=== PATIENT | female | born 1970 | race Caucasian/White ===

== ENCOUNTER 2017-02-17 11:21 | Emergency (ER) | payer SELFPAY ==
[2017-02-17] MEDS ORDERED: Clindamycin 150 MG CAP ONE (11:56)
[2017-02-17] MEDS ORDERED: Naproxen 500 MG TAB ONE (11:56)
== END 2017-02-17 12:02 | disposition home or self-care (01) ==
LOC: MADERS 11:21
DX: L04.0 Acute lymphadenitis of face, head and neck (principal); E11.9 Type 2 diabetes mellitus without complications; Z87.442 Personal history of urinary calculi
CPT/HCPCS: 99282

== ENCOUNTER 2017-03-06 22:33 | Emergency (ER) | payer SELFPAY ==
[~2017-03-06 22:33] MED LIST: Iopamidol 370 76% 100 ML VIAL ONE; Sodium Chloride 0.9% 1,000 ML BAG ONE
[2017-03-06 23:41] LABS: #Basophils 0.1 thou/uL (0.0-0.2); #Eosinphils 0.1 thou/uL (0.0-0.7); #Lymphocytes 2.5 thou/uL (1.20-3.40); #Monocytes 0.4 thou/uL (0.11-0.59); #Neutrophils 2.4 thou/uL (1.40-6.50); %Basophils 0.9 % (0.0-1.0); %Lymphocytes 45.6 % (21.0-51.0); %Monocytes 7.3 % (0.0-10.0); %Neutrophils 44.1 % (42.0-75.0); Hemoglobin 14.1 g/dL (12.0-16.0); Mean Corpuscular HGB CONC 33.5 g/dL (32.0-36.0); Mean Corpuscular Hemoglobin 28.8 pg (27.0-31.0); Mean Corpuscular Volume 85.8 fl (81.0-99.0); Mean Platelet Volume 7.2 fL (7.4-10.4); Platelet Count 267 thou/uL (130-400); RBC Distribution Width 12.6 % (11.5-14.5); White Blood Cell (WBC) Count 5.4 thou/uL (4.8-10.8)
[2017-03-06] MEDS ORDERED: Clindamycin/D5W 900 mg/50 ml Premix Bag ONE (23:48)
[2017-03-06 23:54] LABS: Anion Gap 16 mmol/L (10-20); BUN (Urea Nitrogen) 16 mg/dL (7.0-18.7); Calc. Creatinine Clearance 0 mL/min (70-130); Carbon Dioxide 22 mmol/L (22-29); Chloride 106 mmol/L (98-107); Estimated GFR-MDRD 76; Glucose 229 mg/dL (70-105); Potassium 3.7 mmol/L (3.5-5.1); Sodium 140 mmol/L (136-145)
--- NOTE | 2017-03-06 23:57 | CT ---
NECK CT WITH IV CONTRAST 03/06/17 COMPARISON: None. HISTORY: Pain. TECHNIQUE: Serial axial CT imaging is obtained at 2.5 mm intervals from skull base through lung apices with IV contrast. Coronal and sagittal reformatted imaging obtained. FINDINGS: The imaged lung apices are unremarkable. The imaged paranasal sinuses/mastoid air cells are grossly unremarkable. The retroantral fat and the parapharyngeal fat appears clear bilaterally. Bilateral parotid glands a nd submandibular glands appear within normal limits. The tonsillar pillars, hyoid bone, epiglottis, pre-epiglottic fat, thyroid gland, thyroid cartilage, cricoid cartilage, and level of the glottis appear unremarkable. There is atherosclerotic calcification at the origin of the internal carotid artery bilaterally. There is no lymphadenopathy seen. Osseous structures demonstrate no acute findings. There is a stable nonspecific lucent lesion within the C3 vertebral body, unchanged when compared to a cervical spine CT performed 08/16/14 suggesting a benign etiology. No acute osseous abnormality is evident. IMPRESSION: No acute findings. POS: [facility]
[2017-03-07] MEDS ORDERED: Ketorolac Tromethamine 30 MG/ML VIAL ONE (00:21)
== END 2017-03-07 00:55 | disposition home or self-care (01) ==
LOC: MADERS 22:33
DX: K02.9 Dental caries, unspecified (principal); M54.2 Cervicalgia; E11.9 Type 2 diabetes mellitus without complications; Z87.442 Personal history of urinary calculi; Z79.4 Long term (current) use of insulin
CPT/HCPCS: 70491; 80048; 85025; 96365; 96366; 96375; J1885; J3490; J7050

== ENCOUNTER 2017-05-20 01:43 | Emergency (ER) | payer SELFPAY ==
[2017-05-20] MEDS ORDERED: Naproxen 500 MG TAB ONE (02:52)
[2017-05-20] MEDS ORDERED: Ondansetron ODT 4 MG TAB ONE (02:52)
[2017-05-20] MEDS ORDERED: predniSONE 20 MG TAB ONE (02:52)
[2017-05-20] MEDS ORDERED: diphenhydrAMINE HCl 25 MG CAP ONE (02:52)
== END 2017-05-20 03:19 | disposition home or self-care (01) ==
LOC: MADERS 01:43
DX: T63.2X1A Toxic effect of venom of scorpion, accidental (unintentional), initial encounter (principal); E11.9 Type 2 diabetes mellitus without complications; Z87.442 Personal history of urinary calculi; Z79.4 Long term (current) use of insulin
CPT/HCPCS: 99283; J7506; Q0162

== ENCOUNTER 2017-09-21 21:39 | Emergency (ER) | payer SELFPAY ==
[2017-09-21 22:26] LABS: Bilirubin Negative (Negative); Blood, Urine Trace (Negative); Clarity Clear (Clear); Glucose, Urine (Dipstick) >=1000 mg/dL (Negative); Leukocyte Negative (Negative); Nitrite Negative (Negative); Protein, Urine (Dipstick) Negative (Neg-Trace); Specific Gravity, Urine 1.025 (1.005-1.030); Urobilinogen 0.2 mg/dL (0.2-1.0); pH, Urine 5.5 (5.0-9.0)
[2017-09-21] MEDS ORDERED: Ibuprofen 600 MG TAB ONE (22:30)
[2017-09-21 22:33] LABS: Bacteria/HPF 1+ HPF (None Seen)
[2017-09-21] MEDS ORDERED: Ciprofloxacin 500 MG TAB ONE (22:45)
== END 2017-09-21 23:00 | disposition home or self-care (01) ==
LOC: MADERS 21:39
DX: S20.461A Insect bite (nonvenomous) of right back wall of thorax, initial encounter (principal); N39.0 Urinary tract infection, site not specified; J02.9 Acute pharyngitis, unspecified; E11.9 Type 2 diabetes mellitus without complications; Z87.442 Personal history of urinary calculi; Z79.4 Long term (current) use of insulin
CPT/HCPCS: 81003; 81015; 87081; 87086; 87430; 99283

== ENCOUNTER 2017-09-24 12:43 | Emergency (ER) | payer SELFPAY ==
[2017-09-24] MEDS ORDERED: traMADol HCl 50 MG TAB ONE (13:10)
[2017-09-24] MEDS ORDERED: Fentanyl 100 MCG/2 ML VIAL ONE (13:10)
[2017-09-24] MEDS ORDERED: Ketorolac Tromethamine 60 MG/2 ML VIAL ONE (13:10)
--- NOTE | 2017-09-24 13:41 | RAD ---
PELVIS ONE VIEW: HISTORY: Injury. COMPARISON: Radiograph from the same day. FINDINGS: There appears to be a bone island at the intertrochanteric portion of the left femur. No acute fracture of the pelvis. The obturator rings are intact. The pubic symphysis is intact. IMPRESSION: No acute fracture of the pelvis. POS: [facility]
--- NOTE | 2017-09-24 13:43 | RAD ---
LUMBAR SPINE THREE VIEWS: HISTORY: Pain. COMPARISON: CT from 2016. FINDINGS: Bilateral L5 and pars interarticularis defects are present with grade 1 anterolisthesis at L5/S1. Mi ld degenerative disk space height loss at L4-L5. Numerous small anterior osteophytes. No acute fracture. IMPRESSION: Bilateral L5 pars interarticularis defects with grade 1 anterolisthesis. POS: [facility]
--- NOTE | 2017-09-24 13:47 | RAD ---
THREE VIEWS OF THE SACRUM AND COCCYX: 09/24/2017 HISTORY: Fall. Pain. COMPARISON: None. FINDINGS: The pelvic ring appears intact with no widening of the sacroiliac joints or pubic symphysis. Seconda ry to body habitus, detailed assessment of the sacrum and coccyx is limited on the lateral view. No obvious fracture is seen. There is evidence of anterolisthesis of L5 on S1, measuring in the 1.5 cm range, better assessed on the lumbar spine radiographs, also performed on 09/24/2017. IMPRESSION: 1. No acute osseous abnormality seen. 2. Anterolisthesis of L5 on S1 suggests bilateral L5 pars defects. POS: [facility]
--- NOTE | 2017-09-24 13:47 | RAD ---
LEFT ELBOW FOUR VIEWS: Indication: Left elbow pain subsequent to fall. Injury. FINDINGS: Obliquity of the lateral view does limit the assessment. There is no obvious fracture or dislocation seen. No radiopaque foreign body identified. IMPRESSION: No acute fracture of the left elbow identified. Limited evaluation by obliquity of the lateral view. POS: [facility]
== END 2017-09-24 15:55 | disposition home or self-care (01) ==
LOC: MADERS 12:43
DX: M43.16 Spondylolisthesis, lumbar region (principal); E11.9 Type 2 diabetes mellitus without complications; Z87.442 Personal history of urinary calculi; Z79.4 Long term (current) use of insulin; W10.8XXA Fall (on) (from) other stairs and steps, initial encounter; Y93.01 Activity, walking, marching and hiking
CPT/HCPCS: 72100; 72170; 72220; 96372; 96374; J1885; J3010

== ENCOUNTER 2017-12-09 07:55 | Emergency (ER) | payer SELFPAY ==
[2017-12-09 08:56] LABS: #Eosinphils 0.1 thou/uL (0.0-0.7); #Lymphocytes 1.6 thou/uL (1.20-3.40); #Monocytes 0.5 thou/uL (0.11-0.59); #Neutrophils 2.1 thou/uL (1.40-6.50); %Basophils 0.7 % (0.0-1.0); %Eosinophils 2.2 % (0.0-10.0); %Lymphocytes 36.3 % (21.0-51.0); %Monocytes 12.4 % (0.0-10.0); %Neutrophils 48.3 % (42.0-75.0); Hemoglobin 13.5 g/dL (12.0-16.0); Mean Corpuscular Hemoglobin 28.8 pg (27.0-31.0); Mean Corpuscular Volume 87.4 fl (81.0-99.0); Mean Platelet Volume 6.8 fL (7.4-10.4); Platelet Count 257 thou/uL (130-400); RBC Distribution Width 12.3 % (11.5-14.5); Red Blood Cell (RBC) Count 4.68 mill/uL (4.20-5.40); White Blood Cell (WBC) Count 4.4 thou/uL (4.8-10.8)
[2017-12-09] MEDS ORDERED: Ondansetron ODT 4 MG TAB ONE (09:02)
[2017-12-09 09:15] LABS: ALT (SGPT) 24 U/L (8-55); AST (SGOT) 15 U/L (5-34); Alkaline Phosphatase 45 U/L (40-150); Anion Gap 15 mmol/L (10-20); BUN (Urea Nitrogen) 12 mg/dL (7.0-18.7); Bilirubin, Total 0.5 mg/dL (0.2-1.2); Calc. Creatinine Clearance 0 mL/min (70-130); Carbon Dioxide 23 mmol/L (22-29); Chloride 106 mmol/L (98-107); Estimated GFR-MDRD Greater than 90; Globulin 2.7 g/dL (2.4-3.5); Glucose 220 mg/dL (70-105); Lipase 34 U/L (8-78); Potassium 4.6 mmol/L (3.5-5.1); Protein, Total 6.7 g/dL (6.0-8.3); Sodium 139 mmol/L (136-145)
== END 2017-12-09 10:50 | disposition home or self-care (01) ==
LOC: MADERS 07:55
DX: A09 Infectious gastroenteritis and colitis, unspecified (principal); E11.9 Type 2 diabetes mellitus without complications; Z87.442 Personal history of urinary calculi; Z79.4 Long term (current) use of insulin; Z79.899 Other long term (current) drug therapy
CPT/HCPCS: 80053; 83630; 83690; 85025; 87045; 87046; 87449; 87899; 99284; Q0162

== ENCOUNTER 2018-05-16 07:42 | Emergency (ER) | payer SELFPAY ==
[~2018-05-16 07:42] MED LIST changes: -Iopamidol 370 76% 100 ML VIAL ONE
[2018-05-16] MEDS ORDERED: Metoclopramide HCl 10 MG/2 ML VIAL ONE (08:19)
[2018-05-16] MEDS ORDERED: Famotidine In NaCl 20 mg/50 ml Premix Bag ONE (08:19)
[2018-05-16] MEDS ORDERED: Ketorolac Tromethamine 30 MG/ML VIAL ONE (08:19)
[2018-05-16] MEDS ORDERED: Ondansetron HCl/PF 4 MG/2 ML Vial ONE (08:19)
[2018-05-16 08:44] LABS: #Basophils 0.1 thou/uL (0.0-0.2); #Eosinphils 0.1 thou/uL (0.0-0.7); #Lymphocytes 1.9 thou/uL (1.20-3.40); #Monocytes 0.5 thou/uL (0.11-0.59); #Neutrophils 2.2 thou/uL (1.40-6.50); %Basophils 1.1 % (0.0-1.0); %Eosinophils 2.1 % (0.0-10.0); %Lymphocytes 40.4 % (21.0-51.0); %Monocytes 9.6 % (0.0-10.0); %Neutrophils 46.9 % (42.0-75.0); Hemoglobin 14.3 g/dL (12.0-16.0); Mean Corpuscular HGB CONC 34.1 g/dL (32.0-36.0); Mean Corpuscular Hemoglobin 28.6 pg (27.0-31.0); Mean Platelet Volume 6.5 fL (7.4-10.4); Platelet Count 288 thou/uL (130-400); RBC Distribution Width 12.2 % (11.5-14.5); Red Blood Cell (RBC) Count 4.98 mill/uL (4.20-5.40); White Blood Cell (WBC) Count 4.7 thou/uL (4.8-10.8)
[2018-05-16 08:58] LABS: Anion Gap 16 mmol/L (10-20); BUN (Urea Nitrogen) 9 mg/dL (7.0-18.7); Calc. Creatinine Clearance 0 mL/min (70-130); Calcium 9.2 mg/dL (7.8-10.44); Carbon Dioxide 21 mmol/L (22-29); Chloride 108 mmol/L (98-107); Estimated GFR-MDRD 79; Glucose 154 mg/dL (70-105); Potassium 3.9 mmol/L (3.5-5.1); Sodium 141 mmol/L (136-145)
[2018-05-16 09:05] LABS: CKMB 0.8 ng/mL (0-6.6); Troponin I Less than 0.010 ng/mL (< 0.028)
[2018-05-16 09:54] LABS: Bilirubin Negative (Negative); Blood, Urine Negative (Negative); Clarity Clear (Clear); Glucose, Urine (Dipstick) Negative (Negative); Leukocyte Negative (Negative); Nitrite Negative (Negative); Protein, Urine (Dipstick) Negative (Neg-Trace); Specific Gravity, Urine 1.006 (1.002-1.036); Urobilinogen 0.2 mg/dL (0.2-1.0); pH, Urine 5.5 (5.0-9.0)
--- NOTE | 2018-05-16 11:39 | CT ---
CT ABDOMEN AND PELVIS WITH IV CONTRAST: Date: 05/16/18 HISTORY: Epigastric abdominal pain for 1 week with nausea, vomiting, and diarrhea. COMPARISON: 12/23/15. FINDINGS: The lung bases are clear. Calcified granulomata are again seen in the liver. There is an enhancing 1.7 cm lesion within the inf erior aspect of the right hepatic lobe. Prior imaging demonstrated fatty infiltration and this area a ppeared to represent mild increased density on the prior study. However, on a study on 10/18/13, ther e is a small, approximately 2.0 cm, hypodense mass seen in this location, which likely corresponds to the abnormality seen on today's examination. However, the prior exams were obtained without IV contr ast. There is a postcontrast CT exam in 2006 which demonstrates a small area of enhancement in this r egion, but this area has increased in size from that exam. However, today's finding is felt to repres ent the findings on the prior precontrast studies and likely represents a benign lesion, but either 1 year follow-up versus a MRI of the abdomen is recommended for further confirmation. The spleen, pancreas, bilateral adrenal glands, kidneys, and decompressed urinary bladder, as well as opacified bowel, demonstrate a normal CT appearance. The appendix is visualized and normal in caliber. Vascular calcifications are seen in the iliac arteries bilaterally, as well as at the origin of the m esenteric vessels. No free fluid, fluid collection, or lymphadenopathy is seen in the abdomen or pelvis. Bilateral pars defects are again seen at L5 with what appears to be Grade I anterolisthesis present a t this level on the chief school finance officer image, although is difficult to definitely characterize. IMPRESSION: 1. Enhancing lesion in the right hepatic lobe, slightly larger in size compared to the study in 2006 , but appears to be stable to an area of decreased attenuation thought to correspond to the enhancing abnormality on the study in 2013. This suggests a benign lesion such as either hemangioma or focal nodular hyperplasia. However, short interval follow-up is recommended as a conservative measure in 1 year versus further characterization and assessment with MRI of the abdomen. 2. Stable coarse calcification left upper quadrant below the left renal vessels and adjacent to the left ureter, which may represent a calcified lymph node. This is unchanged compared to prior studies dating back to 2013. 3. Hysterectomy. 4. No acute findings are seen in the abdomen or pelvis. POS: [facility]
== END 2018-05-16 12:04 | disposition home or self-care (01) ==
LOC: MADERS 07:42
DX: K21.0 Gastro-esophageal reflux disease with esophagitis (principal); E11.9 Type 2 diabetes mellitus without complications; Z87.442 Personal history of urinary calculi; Z79.4 Long term (current) use of insulin; Z79.899 Other long term (current) drug therapy
CPT/HCPCS: 74177; 80048; 81003; 82150; 82553; 84484; 85025; 87045; 87046; 87081; 87324; 87449; 87899; 93005; 96361; 96374; 96375; J1885; J2405; J2765

== ENCOUNTER 2018-07-30 10:12 | Emergency (ER) | payer SELFPAY | END 2018-07-30 10:55 | disposition home or self-care (01) | LOC: MADERS 10:12 | DX: Z00.00 Encounter for general adult medical examination without abnormal findings (principal) | CPT/HCPCS: 99281 ==

== ENCOUNTER 2019-02-14 22:32 | Emergency (ER) | payer SELFPAY ==
--- NOTE | 2019-02-14 23:06 | CT ---
EXAM: CT brain without contrast HISTORY: Headache COMPARISON: 08/16/2014 TECHNIQUE: Multiple contiguous axial images were obtained and a CT of the brain without contrast. FINDINGS: The brain is normal in morphology and attenuation without focal lesions or confluent areas of infarction. There is no evidence of hydrocephalus, intracranial hemorrhage, or extra-axial fluid collection. The calvarium and overlying soft tissues are unremarkable. The visualized paranasal sinuses and masto id air cells are well aerated. IMPRESSION: No evidence of acute intracranial abnormality
[2019-02-14] MEDS ORDERED: Lactated Ringer's 1,000 ML ONE (23:20)
[2019-02-14] MEDS ORDERED: Ketorolac Tromethamine 30 MG/ML VIAL ONE (23:20)
[2019-02-14] MEDS ORDERED: Metoclopramide HCl 10 MG/2 ML VIAL ONE (23:20)
== END 2019-02-15 00:35 | disposition home or self-care (01) ==
LOC: MADERS 22:32
DX: R51 Headache (principal); E11.9 Type 2 diabetes mellitus without complications; Z79.4 Long term (current) use of insulin
CPT/HCPCS: 36416; 70450; 96361; 96374; 96375; J1885; J2765; J7120

== ENCOUNTER 2019-07-01 00:37 | Emergency (ER) | payer SELFPAY ==
[2019-07-01] MEDS ORDERED: Sodium Chloride 0.9% 1,000 ML ONE (01:12)
[2019-07-01] MEDS ORDERED: Aspirin Chewable 81 MG TAB ONE (01:12)
[2019-07-01] MEDS ORDERED: Ondansetron PF 4 MG/2 ML Vial ONE (01:12)
[2019-07-01] MEDS ORDERED: Nitroglycerin 0.4 MG TAB 1 EACH ONE ×2 (01:12→06:55)
[2019-07-01 01:38] LABS: #Basophils 0.1 thou/uL (0.0-0.2); #Eosinphils 0.1 thou/uL (0.0-0.7); #Lymphocytes 2.5 thou/uL (1.20-3.40); #Monocytes 0.5 thou/uL (0.11-0.59); #Neutrophils 3.3 thou/uL (1.40-6.50); %Basophils 1.2 % (0.0-1.0); %Eosinophils 2.1 % (0.0-10.0); %Lymphocytes 38.9 % (21.0-51.0); %Monocytes 7.7 % (0.0-10.0); %Neutrophils 50.1 % (42.0-75.0); Hemoglobin 13.1 g/dL (12.0-16.0); Mean Corpuscular HGB CONC 32.8 g/dL (32.0-36.0); Mean Corpuscular Hemoglobin 27.7 pg (27.0-31.0); Mean Corpuscular Volume 84.2 fL (78.0-98.0); Mean Platelet Volume 6.2 fL (7.4-10.4); Platelet Count 245 thou/uL (130-400); Red Blood Cell (RBC) Count 4.75 mill/uL (4.20-5.40); White Blood Cell (WBC) Count 6.5 thou/uL (4.8-10.8)
[2019-07-01 01:51] LABS: ALT (SGPT) 24 U/L (8-55); AST (SGOT) 15 U/L (5-34); Alkaline Phosphatase 59 U/L (40-110); Anion Gap 15 mmol/L (10-20); BUN (Urea Nitrogen) 19 mg/dL (7.0-18.7); Bilirubin, Total 0.2 mg/dL (0.2-1.2); Calc. Creatinine Clearance 0 mL/min (70-130); Calcium 9.3 mg/dL (7.8-10.44); Carbon Dioxide 23 mmol/L (22-29); Chloride 103 mmol/L (98-107); Estimated GFR-MDRD 71; Globulin 3.2 g/dL (2.4-3.5); Glucose 298 mg/dL (70-105); Potassium 4.1 mmol/L (3.5-5.1); Protein, Total 7.2 g/dL (6.0-8.3); Sodium 137 mmol/L (136-145)
[2019-07-01] MEDS ORDERED: Acetaminophen 500 MG TAB ONE (01:53)
--- NOTE | 2019-07-01 07:06 | RAD ---
RADIOGRAPH CHEST 1 VIEW: DATE: 07/01/2019 1:21 AM HISTORY: 48-year-old female with left-sided chest pain FINDINGS: There are no airspace densities, pulmonary edema, pneumothorax, or cardiomegaly. The lateral costophr enic angles are sharp. IMPRESSION: No acute cardiopulmonary findings.
== END 2019-07-01 02:14 | disposition short-term general hospital (02) ==
LOC: MADERS 00:37
DX: R07.9 Chest pain, unspecified (principal); E11.9 Type 2 diabetes mellitus without complications; Z79.84 Long term (current) use of oral hypoglycemic drugs; Z79.82 Long term (current) use of aspirin; Z86.73 Personal history of transient ischemic attack (TIA), and cerebral infarction without residual deficits
CPT/HCPCS: 71045; 80053; 83880; 84484; 85025; 85379; 93005; 94760; 96361; 96374; J2405; J7050

== ENCOUNTER 2019-10-01 04:00 | Emergency (ER) | payer SELFPAY ==
[2019-10-01] MEDS ORDERED: Ketorolac Tromethamine 30 MG/ML VIAL ONE (04:49)
== END 2019-10-01 05:14 | disposition home or self-care (01) ==
LOC: MADERS 04:00
DX: M25.511 Pain in right shoulder (principal); E11.9 Type 2 diabetes mellitus without complications
CPT/HCPCS: 93005; 96372; J1885

== ENCOUNTER 2020-07-12 10:12 | Emergency (ER) | payer SELFPAY ==
--- NOTE | 2020-07-12 11:57 | RAD ---
Exam: Chest one view HISTORY:Chest pain Comparison: 07/01/2019 FINDINGS: Cardiac silhouette: Normal Aorta: Unremarkable Pulmonary vessels: Normal Costophrenic angles: Clear LUNGS: No masses or consolidation. Pneumothorax: None Osseous abnormalities: None IMPRESSION: No acute cardiopulmonary process.
== END 2020-07-12 13:05 | disposition home or self-care (01) ==
LOC: MADERS 10:12
DX: R06.02 Shortness of breath (principal); R51.9 Headache, unspecified; R05 Cough; E11.9 Type 2 diabetes mellitus without complications; Z79.4 Long term (current) use of insulin; Z87.442 Personal history of urinary calculi; Z86.73 Personal history of transient ischemic attack (TIA), and cerebral infarction without residual deficits
CPT/HCPCS: 71045; 93005

== ENCOUNTER 2020-10-21 02:26 | Emergency (ER) | payer SELFPAY ==
[2020-10-21] MEDS ORDERED: Boostrix 0.5 ML (Tdap) VIAL ONE (03:07)
[2020-10-21] MEDS ORDERED: Acetaminophen 500 MG TAB ONE (03:07)
[2020-10-21] MEDS ORDERED: Ondansetron PF 4 MG/2 ML Vial ONE (03:07)
[2020-10-21] MEDS ORDERED: Acetaminophen 325 MG TAB ONE (03:25)
--- NOTE | 2020-10-21 07:27 | CT ---
PRELIMINARY REPORT/[facility]/EMERGENCY AFTER HOURS PROCEDURE EXAM: CT Head Without Intravenous Contrast. CLINICAL HISTORY: FALL; HIT HEAD ON NIGHTSTAND; HEMATOMA TO LEFT FRONTAL TECHNIQUE: Axial computed tomography images of the head/brain without intravenous contrast. COMPARISON: None provided. FINDINGS: BRAIN: No acute intraparenchymal hemorrhage. No mass lesion. No CT evidence for acute territorial infarct. N o midline shift or extra-axial collection. VENTRICLES: No hydrocephalus. ORBITS: The orbits are unremarkable. SINUSES AND MASTOIDS: The paranasal sinuses and mastoid air cells are clear. SOFT TISSUES: Large left frontal scalp hematoma. No radiopaque foreign body is seen. BONES: No acute skull fracture. IMPRESSION: No acute intracranial abnormality. Large left frontal scalp hematoma. ELECTRONICALLY SIGNED BY: Gayatri Mark MD Oct 21, 2020 3:15:17 AM [employer] This report is intended for review by the ordering physician only, in accordance of law. If you recei ve this report in error, please call [facility] at [phone]. FINAL REPORT Final interpretation Head CT without contrast: 10/21/2020 COMPARISON: 02/14/2019. HISTORY: Injury, trauma, pain. FINDINGS: There is a focal area of scalp swelling/subcutaneous hematoma in the left frontal region/left suprao rbital region. The visualized paranasal sinuses and mastoid air cells appear well-aerated. There is no displaced calvarial fracture noted. No intracranial hemorrhage, midline shift, mass effect, or ventricular enlargement is seen. Multifoca l dural calcification present. IMPRESSION: Prominent scalp swelling/subcutaneous hematoma in the left frontal region. No associated fracture or intracranial hemorrhage. CODE QA. Transcribed Date/Time: 10/21/2020 8:04 AM
== END 2020-10-21 03:39 | disposition home or self-care (01) ==
LOC: MADERS 02:26
DX: S00.83XA Contusion of other part of head, initial encounter (principal); S50.312A Abrasion of left elbow, initial encounter; S80.812A Abrasion, left lower leg, initial encounter; E11.9 Type 2 diabetes mellitus without complications; Z86.73 Personal history of transient ischemic attack (TIA), and cerebral infarction without residual deficits; Z79.4 Long term (current) use of insulin; W01.10XA Fall on same level from slipping, tripping and stumbling with subsequent striking against unspecified object, initial encounter
CPT/HCPCS: 70450; 90471; 90715; 96374; J2405

== ENCOUNTER 2021-04-18 17:53 | Emergency (ER) | payer SELFPAY ==
[~2021-04-18 17:53] MED LIST changes: +Iopamidol 370 76% 125 ML VIAL FS ONE; -Sodium Chloride 0.9% 1,000 ML BAG ONE; +Sodium Chloride 0.9% 100 ML BAG ONE
[2021-04-18 19:05] LABS: Bilirubin Negative (Negative); Blood, Urine Trace (Negative); Clarity Clear (Clear); Glucose, Urine (Dipstick) 100 mg/dL (Negative); Ketone, Urine Negative (Negative); Leukocyte Trace (Negative); Nitrite Negative (Negative); Protein, Urine (Dipstick) Negative (Neg-Trace); Specific Gravity, Urine 1.015 (1.005-1.030); Urobilinogen 0.2 mg/dL (Less than 2); pH, Urine 6.5 (5.0-9.0)
[2021-04-18 19:10] LABS: Bacteria/HPF 1+ HPF (None Seen); RBC/HPF 0-3 HPF (0-3); WBC/HPF 0-3 HPF (0-3)
[2021-04-18 19:13] LABS: #Eosinphils 0.1 thou/uL (0.0-0.7); #Lymphocytes 2.1 thou/uL (1.20-3.40); #Monocytes 0.6 thou/uL (0.11-0.59); #Neutrophils 2.7 thou/uL (1.40-6.50); %Basophils 0.9 % (0.0-1.0); %Eosinophils 1.1 % (0.0-10.0); %Lymphocytes 37.9 % (21.0-51.0); %Monocytes 10.9 % (0.0-10.0); %Neutrophils 49.2 % (42.0-75.0); Hemoglobin 14.5 g/dL (12.0-16.0); Mean Corpuscular HGB CONC 31.8 g/dL (32.0-36.0); Mean Corpuscular Hemoglobin 27.2 pg (27.0-31.0); Mean Corpuscular Volume 85.5 fL (78.0-98.0); Mean Platelet Volume 7.2 fL (7.4-10.4); Platelet Count 256 thou/uL (130-400); Red Blood Cell (RBC) Count 5.34 mill/uL (4.20-5.40); White Blood Cell (WBC) Count 5.5 thou/uL (4.8-10.8)
[2021-04-18 19:32] LABS: ALT (SGPT) 40 U/L (8-55); AST (SGOT) 26 U/L (5-34); Albumin 3.8 g/dL (3.5-5.0); Alkaline Phosphatase 57 U/L (40-110); Anion Gap 15 mmol/L (10-20); BUN (Urea Nitrogen) 13 mg/dL (9.8-20.1); Bilirubin, Total 0.5 mg/dL (0.2-1.2); Calc. Creatinine Clearance 0 mL/min (70-130); Carbon Dioxide 24 mmol/L (22-29); Chloride 103 mmol/L (98-107); Globulin 2.9 g/dL (2.4-3.5); Glucose 181 mg/dL (70-105); Magnesium 1.7 mg/dL (1.6-2.6); Potassium 3.9 mmol/L (3.5-5.1); Protein, Total 6.7 g/dL (6.0-8.3); Sodium 138 mmol/L (136-145)
[2021-04-18] MEDS ORDERED: Meclizine HCl 25 MG TAB ONE (19:39)
[2021-04-18] MEDS ORDERED: Aspirin Chewable 81 MG TAB ONE (21:16)
== END 2021-04-18 22:33 | disposition short-term general hospital (02) ==
LOC: MADERS 17:53
DX: R42 Dizziness and giddiness (principal); E11.9 Type 2 diabetes mellitus without complications; Z79.4 Long term (current) use of insulin; Z86.73 Personal history of transient ischemic attack (TIA), and cerebral infarction without residual deficits; Z87.442 Personal history of urinary calculi
CPT/HCPCS: 36415; 70450; 70496; 70498; 80053; 81003; 81015; 83735; 84443; 85025; 93005; J3490; Q9967

== ENCOUNTER 2021-05-17 20:48 | Emergency (ER) | payer OTHER, SELFPAY ==
[2021-05-17] MEDS ORDERED: Acetaminophen 500 MG TAB ONE (22:24)
== END 2021-05-18 00:08 | disposition home or self-care (01) ==
LOC: MADERS 20:48
DX: S00.03XA Contusion of scalp, initial encounter (principal); S30.0XXA Contusion of lower back and pelvis, initial encounter; E11.9 Type 2 diabetes mellitus without complications; I10 Essential (primary) hypertension; Z87.442 Personal history of urinary calculi; Z86.73 Personal history of transient ischemic attack (TIA), and cerebral infarction without residual deficits; W01.0XXA Fall on same level from slipping, tripping and stumbling without subsequent striking against object, initial encounter
CPT/HCPCS: 70450; 72131

== ENCOUNTER 2022-03-08 08:54 | Emergency (ER) | payer SELFPAY | END 2022-03-08 09:48 | disposition home or self-care (01) | LOC: MADERS 08:54 | DX: U07.1 COVID-19 (principal); J06.9 Acute upper respiratory infection, unspecified; E11.9 Type 2 diabetes mellitus without complications; Z79.84 Long term (current) use of oral hypoglycemic drugs; Z79.899 Other long term (current) drug therapy | CPT/HCPCS: 99283; U0003; U0005 ==

== ENCOUNTER 2022-08-30 20:55 | Emergency (ER) | payer SELFPAY ==
[2022-08-30] MEDS ORDERED: Ketorolac Tromethamine 30 MG/ML VIAL ONE (21:41)
[2022-08-30] MEDS ORDERED: Sodium Chloride 0.9% 1,000 ML ONE (21:41)
[2022-08-30] MEDS ORDERED: Metoclopramide HCl 10 MG/2 ML VIAL ONE (21:41)
[2022-08-30] MEDS ORDERED: diphenhydrAMINE 50 MG/ML VIAL ONE (21:41)
== END 2022-08-30 23:26 | disposition home or self-care (01) ==
LOC: MADERS 20:55
DX: R51.9 Headache, unspecified (principal); E11.9 Type 2 diabetes mellitus without complications; Z79.4 Long term (current) use of insulin
CPT/HCPCS: 36416; 96365; 96375; J1200; J1885; J2765; J7050

== ENCOUNTER 2022-09-06 00:49 | Emergency (ER) | payer SELFPAY ==
[2022-09-06 01:20] LABS: #Eosinphils 0.1 thou/uL (0.0-0.7); #Lymphocytes 2.2 thou/uL (1.20-3.40); #Monocytes 0.6 thou/uL (0.11-0.59); #Neutrophils 2.5 thou/uL (1.40-6.50); %Basophils 0.8 % (0.0-1.0); %Eosinophils 1.4 % (0.0-10.0); %Lymphocytes 41.2 % (21.0-51.0); %Monocytes 10.1 % (0.0-10.0); %Neutrophils 46.6 % (42.0-75.0); Hemoglobin 14.6 g/dL (12.0-16.0); Mean Corpuscular HGB CONC 33.2 g/dL (32.0-36.0); Mean Corpuscular Hemoglobin 28.6 pg (27.0-31.0); Mean Corpuscular Volume 86.2 fl (78.0-98.0); Mean Platelet Volume 7.2 fL (7.4-10.4); Platelet Count 255 10x3/uL (130-400); RBC Distribution Width 11.6 % (11.5-14.5); Red Blood Cell (RBC) Count 5.11 mill/uL (4.20-5.40); White Blood Cell (WBC) Count 5.4 10x3/uL (4.8-10.8)
[2022-09-06 01:40] LABS: ALT (SGPT) 19 U/L (8-55); AST (SGOT) 16 U/L (5-34); Albumin 4.1 g/dL (3.5-5.0); Alkaline Phosphatase 67 U/L (40-110); Anion Gap 15 mmol/L (10-20); BUN (Urea Nitrogen) 22 mg/dL (9.8-20.1); Bilirubin, Total 0.4 mg/dL (0.2-1.2); CK (CPK) 112 U/L (29-168); Calc. Creatinine Clearance 0 mL/min (70-130); Calcium 9.3 mg/dL (7.8-10.44); Carbon Dioxide 25 mmol/L (22-29); Chloride 102 mmol/L (98-107); Estimated GFR 85; Globulin 3.3 g/dL (2.4-3.5); Glucose 253 mg/dL (70-105); Potassium 3.9 mmol/L (3.5-5.1); Protein, Total 7.4 g/dL (6.0-8.3); Sodium 138 mmol/L (136-145)
[2022-09-06 01:40] LABS: Magnesium 1.8 mg/dL (1.6-2.6)
[2022-09-06 01:41] LABS: Acetaminophen Less than 10.0 mcg/mL (10.0-30.0); Alcohol Less than 10 mg/dL (Less than 10); Salicylate Less than 8.0 mg/dL (15.0-30.0)
[2022-09-06 02:00] LABS: Amphetamine Not Detected (NotDetected); Benzodiazepine Screen Not Detected (NotDetected); Cocaine Metabolite Screen Not Detected (NotDetected); Methadone Not Detected (NotDetected); Methamphetamine Not Detected (NotDetected); Opiate Screen Not Detected (NotDetected); Phencyclidine (PCP) Not Detected (NotDetected); THC/Cannabinoid Screen Not Detected (NotDetected); Tricyclic Screen Not Detected (NotDetected)
[2022-09-06 02:01] LABS: Barbiturates Screen Not Detected (NotDetected); Medtox Control Line Valid? VALID (VALID); Oxycodone Screen Not Detected (NotDetected)
[2022-09-06] MEDS ORDERED: Meclizine HCl 25 MG TAB ONE (02:43)
[2022-09-06] MEDS ORDERED: diphenhydrAMINE 50 MG/ML VIAL ONE (03:02)
[2022-09-06 03:41] LABS: Bilirubin Negative (Negative); Blood, Urine Negative (Negative); Clarity Clear (Clear); Glucose, Urine (Dipstick) 500 mg/dL (Negative); Ketone, Urine Negative (Negative); Leukocyte Negative (Negative); Nitrite Negative (Negative); Protein, Urine (Dipstick) Negative (Neg-Trace); Urobilinogen 0.2 mg/dL (Less than 2); pH, Urine 5.5 (5.0-9.0)
[2022-09-06 04:22] LABS: Troponin I Less than 0.010 ng/mL (< 0.028)
== END 2022-09-06 10:40 | disposition home or self-care (01) ==
LOC: MADERS 00:49
DX: I16.0 Hypertensive urgency (principal); E11.9 Type 2 diabetes mellitus without complications; Z79.82 Long term (current) use of aspirin; Z79.84 Long term (current) use of oral hypoglycemic drugs
CPT/HCPCS: 36415; 36416; 70450; 71045; 80053; 80306; 80307; 81003; 82550; 83735; 83880; 84484; 85025; 93005; 96374; J1200

== ENCOUNTER 2022-09-10 12:43 | Emergency (ER) | payer SELFPAY ==
[2022-09-10 13:17] LABS: #Eosinphils 0.1 thou/uL (0.0-0.7); #Lymphocytes 1.8 thou/uL (1.20-3.40); #Monocytes 0.4 thou/uL (0.11-0.59); #Neutrophils 2.6 thou/uL (1.40-6.50); %Basophils 0.9 % (0.0-1.0); %Eosinophils 1.2 % (0.0-10.0); %Lymphocytes 37.2 % (21.0-51.0); %Monocytes 8.1 % (0.0-10.0); %Neutrophils 52.6 % (42.0-75.0); Hemoglobin 14.8 g/dL (12.0-16.0); Mean Corpuscular HGB CONC 31.9 g/dL (32.0-36.0); Mean Corpuscular Hemoglobin 27.4 pg (27.0-31.0); Mean Corpuscular Volume 85.9 fl (78.0-98.0); Mean Platelet Volume 7.5 fL (7.4-10.4); Platelet Count 271 10x3/uL (130-400); RBC Distribution Width 11.6 % (11.5-14.5); Red Blood Cell (RBC) Count 5.41 mill/uL (4.20-5.40); White Blood Cell (WBC) Count 4.9 10x3/uL (4.8-10.8)
[2022-09-10 13:23] LABS: PTT 25.4 sec (22.9-36.1); Prothrombin Time 13.2 sec (12.0-14.7)
[2022-09-10] MEDS ORDERED: hydrALAZINE 20 MG/ML VIAL ONE (13:23)
[2022-09-10] MEDS ORDERED: Meclizine HCl 25 MG TAB ONE (13:23)
[2022-09-10 13:32] LABS: CKMB 1.5 ng/mL (0-6.6)
[2022-09-10 13:35] LABS: ALT (SGPT) 17 U/L (8-55); AST (SGOT) 15 U/L (5-34); Albumin 4.2 g/dL (3.5-5.0); Alkaline Phosphatase 62 U/L (40-110); Anion Gap 16 mmol/L (10-20); BUN (Urea Nitrogen) 16 mg/dL (9.8-20.1); Bilirubin, Total 0.6 mg/dL (0.2-1.2); Calc. Creatinine Clearance 0 mL/min (70-130); Calcium 9.2 mg/dL (7.8-10.44); Carbon Dioxide 21 mmol/L (22-29); Chloride 104 mmol/L (98-107); Estimated GFR 94; Globulin 3.3 g/dL (2.4-3.5); Glucose 259 mg/dL (70-105); Lipase 21 U/L (8-78); Magnesium 1.9 mg/dL (1.6-2.6); Protein, Total 7.5 g/dL (6.0-8.3); Sodium 137 mmol/L (136-145)
[2022-09-10] MEDS ORDERED: Ketorolac Tromethamine 30 MG/ML VIAL ONE (15:25)
[2022-09-10] MEDS ORDERED: Acetaminophen 500 MG TAB ONE (18:47)
[2022-09-10 19:20] LABS: Troponin I Less than 0.010 ng/mL (< 0.028)
== END 2022-09-11 02:00 | disposition left against medical advice (07) ==
LOC: MADERS 12:43
DX: R07.89 Other chest pain (principal); I10 Essential (primary) hypertension; E66.9 Obesity, unspecified; E11.9 Type 2 diabetes mellitus without complications
CPT/HCPCS: 36415; 70450; 71045; 80053; 82553; 83690; 83735; 83880; 84484; 85025; 85610; 85730; 93005; 96374; 96375; J0360; J1885

== ENCOUNTER 2024-06-14 08:56 | Emergency (ER) | payer SELFPAY | END 2024-06-14 10:15 | disposition home or self-care (01) | LOC: MADERS 08:56 | DX: H66.92 Otitis media, unspecified, left ear (principal); J20.9 Acute bronchitis, unspecified; E11.9 Type 2 diabetes mellitus without complications; E78.5 Hyperlipidemia, unspecified; Z86.73 Personal history of transient ischemic attack (TIA), and cerebral infarction without residual deficits; Z79.84 Long term (current) use of oral hypoglycemic drugs | CPT/HCPCS: 71046; 87081; 87430 ==

== ENCOUNTER 2025-09-10 12:54 | Emergency (ER) | payer SELFPAY ==
[2025-09-10] MEDS ORDERED: Clindamycin 150 MG CAP ONE (14:54)
== END 2025-09-10 15:45 | disposition home or self-care (01) ==
LOC: MADERS 12:54
DX: K04.7 Periapical abscess without sinus (principal); K02.9 Dental caries, unspecified; E11.9 Type 2 diabetes mellitus without complications
CPT/HCPCS: 64400; J0665